=== PATIENT | male | born 1975 | race Caucasian/White ===

== ENCOUNTER 2018-02-18 15:08 | Emergency (ER) | payer OTHER ==
--- NOTE | 2018-02-18 15:27 | PDOC ---
History of Present Illness - General History Source: Patient Exam Limitations: No Limitations - History of Present Illness Initial Comments: 02/18/18 16:03 The patient is a 42 year old male, with a significant past medical history of, who presents to the emergency department with, elevated blood pressure. Patient notes associated chest tightness/pressure, headache (with photophobia), and lower extremity pins and needles sensation. As per patient, he was seen at [facility] for similar symptoms and given Toradol. His blood pressure while in the ER yesterday was 171/117. He notes still not feeling well so he went to [facility] where he left before medical evaluation. Over the past week, the patient endorses decreased sleep, increased stress, and dyspnea upon exertion. The patient endorses one episode of black stool and upset stomach with a continuation of his symptoms yesterday prompting his visit to the ER today. He denies any past medical history of hypertension. He denies any recent fevers , chills, or dizziness. He denies any recent nausea, vomit, diarrhea or constipation. He denies any recent dysuria, frequency, urgency or hematuria. Allergies: Penicillins, porcine/pork. Social History: Smoker (6 cigarettes per day). Social alcohol usage. Primary Care Physician: Dr. Woods <Trisha Dalton - Last Filed: 02/18/18 18:05> <Joan Ferguson - Last Filed: 02/19/18 07:22> - General Chief Complaint: Blood Pressure Problem Stated Complaint: HIGH BLOOD PRESSURE Time Seen by Provider: 02/18/18 15:27 Past History <Trisha Dalton - Last Filed: 02/18/18 18:05> <Joan Ferguson - Last Filed: 02/19/18 07:22> - Past Medical History Allergies/Adverse Reactions: Allergies Allergy/AdvReac Type Severity Reaction Status Date / Time Penicillins Allergy Unknown Verified 02/18/18 15:10 Pork/Porcine Containing Allergy Unknown Verified 02/18/18 15:10 Products Home Medications: Ambulatory Orders Amlodipine Besylate [Norvasc -] 5 mg PO DAILY #7 tablet 02/18/18 Review of Systems - Review of Systems Able to Perform ROS?: Yes Comments:: 02/18/18 16:03 +GENERAL/CONSTITUTIONAL: Elevated blood pressure. No fever or chills. No weakness. HEAD, EYES, EARS, NOSE AND THROAT: No change in vision. No ear pain or discharge. No sore throat. +CARDIOVASCULAR: Chest tightness/pressure. Exertional dyspnea. RESPIRATORY: No cough, wheezing, or hemoptysis. +GASTROINTESTINAL: Black stool. No nausea, vomiting, diarrhea or constipation. GENITOURINARY: No dysuria, frequency, or change in urination. MUSCULOSKELETAL: No joint or muscle swelling or pain. No neck or back pain. SKIN: No rash +NEUROLOGIC: Headache. Photophobia. No vertigo, loss of consciousness, or change in strength/sensation. ENDOCRINE: No increased thirst. No abnormal weight change. HEMATOLOGIC/LYMPHATIC: No anemia, easy bleeding, or history of blood clots. ALLERGIC/IMMUNOLOGIC: No hives or skin allergy. All Other Systems: Reviewed and Negative <Trisha Dalton - Last Filed: 02/18/18 18:05> *Physical Exam - Vital Signs Last Vital Signs Temp Pulse Resp BP Pulse Ox 98.0 F 64 22 H 153/104 H 100 02/18/18 15:09 02/18/18 15:09 02/18/18 15:09 02/18/18 15:09 02/18/18 15:09 <Trisha Dalton - Last Filed: 02/18/18 18:05> - Physical Exam Comments: GENERAL: Awake, alert, and fully oriented, in no acute distress. HEAD: No signs of trauma. EYES: PERRLA, EOMI, sclera anicteric, conjunctiva clear. ENT: Auricles normal inspection, hearing grossly normal, nares patent, oropharynx clear without exudates. Moist mucosa. NECK: Normal ROM, supple, no lymphadenopathy, JVD, or masses. LUNGS: Breath sounds equal, clear to auscultation bilaterally. No wheezes, and no crackles. HEART: Regular rate and rhythm, normal S1 and S2, no murmurs, rubs or gallops. ABDOMEN: Soft, +diffuse mod tenderness, normoactive bowel sounds. No guarding, no rebound. No masses. EXTREMITIES: Normal range of motion, no edema. No clubbing or cyanosis. No cords, erythema, or tenderness. NEUROLOGICAL: Cranial nerves II through XII grossly intact. Normal speech, normal gait. SKIN: Warm, Dry, normal turgor, no rashes or lesions noted. <Joan Ferguson - Last Filed: 02/19/18 07:22> Heart Score/ECG Review - History History: Slightly suspicious - Electrocardiogram EKG: Normal - Age Age: </= 45 - Risk Factors Risk Factors Heart Score: Yes Hx Hypertension, Yes Hx Obesity Based on the list above the patient has:: 1-2 risk factors - Troponin Troponin: </= normal limit - Score Heart Score - Total: 1 - ECG Impressions Comment:: EKG read 15:34- NSR 64 bpm, no acute ST/T changes <Joan Ferguson - Last Filed: 02/19/18 07:22> ED Treatment Course - LABORATORY CBC & Chemistry Diagram: 02/18/18 16:00 02/18/18 16:00 - RADIOLOGY Radiograph Interpretation: 02/18/18 18:05 EXAM: CT abdomen and pelvis with contrast IMAGES:[id number] DATE OF EXAM: 2018-02-18 16:47:17 REASON FOR EXAM: Diffuse abdomen tenderness. Rule out free air. COMPARISON: None Findings: Atelectasis and scarring in lung bases. 4 mm pleural nodule in left lower lobe. No pleural effusions. Possible hepatic steatosis. The gallbladder, pancreas, adrenal glands, and spleen are unremarkable. No renal or urinary calculi. No AAA. No evidence for diverticulitis, appendicitis, small bowel obstruction, free fluid, or free air. Mild prostate enlargement. Small right inguinal hernia containing fat. No acute abnormality. One or more of the following dose reduction techniques were used: automated exposure control, adjustment of the mA and/or kV according to patient size, use of iterative reconstructive technique. Read by: Catrachito Burger MD <Trisha Dalton - Last Filed: 02/18/18 18:05> - LABORATORY CBC & Chemistry Diagram: 02/18/18 16:00 02/18/18 16:00 <Joan Ferguson - Last Filed: 02/19/18 07:22> Medical Decision Making - Medical Decision Making 02/18/18 19:00 Pt with multiple recent elevated BP measurements, has not recently seen his PMD. Also noted to have abd pain. CT no acute findings. Initial trop negative. Awaiting repeat trop, then if negative, will DC with small dose of norvasc. I counseled him that he MUST follow up with his PMD THIS WEEK. <Joan Ferguson - Last Filed: 02/19/18 07:22> *DC/Admit/Observation/Transfer - Attestations Scribe Attestion: 02/18/18 16:04 Documentation prepared by Trisha Dalton, acting as pediatrician/medical doctor for Joan Ferguson MD. <Trisha Dalton - Last Filed: 02/18/18 18:05> - Discharge Dispostion Decision to Admit order: No <Joan Ferguson - Last Filed: 02/19/18 07:22> Diagnosis at time of Disposition: Hypertension Qualifiers: Hypertension type: unspecified Qualified Code(s): I10 - Essential (primary) hypertension - Discharge Dispostion Disposition: HOME Condition at time of disposition: Stable - Prescriptions Prescriptions: Amlodipine Besylate [Norvasc -] 5 mg PO DAILY #7 tablet - Referrals Referrals: Miquel Woods MD [Primary Care Provider] - - Patient Instructions Printed Discharge Instructions: Tips to Help You Stop Smoking, DI for High Blood Pressure Additional Instructions: followup with Dr Woods within the next week norvasc 5mg daily - Post Discharge Activity
[2018-02-18 15:50] VITALS: BMI 33.5
[2018-02-18 16:23] LABS: BASO % 0.9 % (0-2.0); EOS % 2.9 % (0-4.5); HEMATOCRIT 43.9 % (35.4-49); HEMOGLOBIN 14.6 GM/dl (11.7-16.9); LYMPH % 25.8 % (8-40); MCH 29.3 pg (25.7-33.7); MCHC 33.3 g/dl (32.0-35.9); MEAN CELL VOLUME 87.9 fl (80-96); MEAN PLT VOLUME 7.9 fl (7.5-11.1); MONO % 5.1 % (3.8-10.2); NEUT % 65.3 % (42.8-82.8); PLATELET COUNT 265 K/MM3 (134-434); RBC 4.99 M/mm3 (4.00-5.60); RDW 13.6 % (11.9-15.9); WHITE BLOOD COUNT 6.6 K/mm3 (4.0-10.8)
[2018-02-18 16:37] LABS: ALBUMIN 4.2 g/dl (3.5-5.0); ALK PHOS 71 U/L (32-92); ANION GAP 6 MMOL/L (8-16); BILIRUBIN,TOTAL 2.4 mg/dl (0.2-1.0); BLOOD UREA NITROGEN 16 mg/dl (7-18); CALCIUM 9.1 mg/dl (8.4-10.2); CHLORIDE 106 mmol/L (98-107); CO2 25 mmol/L (22-28); CREATININE 1.1 mg/dl (0.6-1.3); GLUCOSE,RANDOM 98 mg/dl (74-106); POTASSIUM 3.9 mmol/L (3.5-5.1); SGOT/AST 33 U/L (10-42); SGPT/ALT 38 U/L (10-40); SODIUM 137 mmol/L (136-145); TOT PROT 7.5 g/dl (6.4-8.3)
[2018-02-18 18:12] LABS: LIPASE 107 U/L (73-393)
--- NOTE | 2018-02-18 19:11 | PDOC ---
*Physical Exam - Vital Signs Last Vital Signs Temp Pulse Resp BP Pulse Ox 98.0 F 62 16 146/82 98 02/18/18 15:09 02/18/18 16:20 02/18/18 16:20 02/18/18 16:20 02/18/18 16:20 ED Treatment Course - LABORATORY CBC & Chemistry Diagram: 02/18/18 16:00 02/18/18 16:00 - ADDITIONAL ORDERS Additional order review: Laboratory Results 02/18/18 02/18/18 02/18/18 18:35 16:15 16:00 Sodium Potassium Chloride Carbon Dioxide Anion Gap BUN Creatinine Creat Clearance w eGFR Random Glucose Calcium Total Bilirubin AST ALT Alkaline Phosphatase Creatine Kinase 307 Creatine Kinase Index CK-MB (CK-2) Troponin I < 0.03 Total Protein Albumin Lipase TSH Stool Occult Blood Negative 02/18/18 16:00 Sodium 137 Potassium 3.9 Chloride 106 Carbon Dioxide 25 Anion Gap 6 L BUN 16 Creatinine 1.1 Creat Clearance w eGFR > 60 Random Glucose 98 Calcium 9.1 Total Bilirubin 2.4 H AST 33 ALT 38 Alkaline Phosphatase 71 Creatine Kinase 352 H Creatine Kinase Index 0.7 CK-MB (CK-2) 2.8 Troponin I Total Protein 7.5 Albumin 4.2 Lipase 107 TSH 0.97 Stool Occult Blood 02/18/18 16:00 RBC 4.99 MCV 87.9 MCHC 33.3 RDW 13.6 MPV 7.9 Neutrophils % 65.3 Lymphocytes % 25.8 Monocytes % 5.1 Eosinophils % 2.9 Basophils % 0.9 Progress Note - Progress Note Progress Note: Care of this patient received from Dr. Ferguson. Patient's second troponin is not elevated. Patient be discharged with a prescription should for Norvasc 5 mg daily for 1 week. He should follow-up with his general medical doctor within the next week. He should return to the emergency room if he has recurrence of symptoms. *DC/Admit/Observation/Transfer Diagnosis at time of Disposition: Hypertension Qualifiers: Hypertension type: unspecified Qualified Code(s): I10 - Essential (primary) hypertension - Discharge Dispostion Disposition: HOME Condition at time of disposition: Stable - Prescriptions Prescriptions: Amlodipine Besylate [Norvasc -] 5 mg PO DAILY #7 tablet - Referrals Referrals: Miquel Woods MD [Primary Care Provider] - - Patient Instructions Printed Discharge Instructions: Tips to Help You Stop Smoking, DI for High Blood Pressure Additional Instructions: followup with Dr Woods within the next week norvasc 5mg daily - Post Discharge Activity
[2018-02-18 19:35] VITALS: BP 135/92; PULSE 55; TEMP 97.9
--- NOTE | 2018-02-19 11:33 | EKG ---
Test Reason : Blood Pressure : / mmHG Vent. Rate : 064 BPM Atrial Rate : 064 BPM P-R Int : 136 ms QRS Dur : 086 ms QT Int : 404 ms P-R-T Axes : 038 027 024 degrees QTc Int : 416 ms NORMAL SINUS RHYTHM NORMAL ECG NO PREVIOUS ECGS AVAILABLE Confirmed by JOSSE ALLRED MD ([id number]) on 02/19/2018 11:32:56 AM Referred By: SANJU Confirmed By:JOSSE ALLRED MD
== END 2018-02-18 19:49 | disposition home or self-care (01) ==
LOC: FER 15:08
DX: I10 Essential (primary) hypertension (principal)
CPT/HCPCS: 36415; 74177-TC; 80053; 82272; 82550; 82553; 83690; 84443; 84484; 85025; 87389; 93005; 99285-25